=== PATIENT | female | born 1985 | race Caucasian/White ===

== ENCOUNTER 2016-11-23 22:08 | Emergency (ER) | payer OTHER ==
[~2016-11-23] VITALS: Ht 167.6 cm; Wt 99.8 kg
--- NOTE | 2016-11-23 22:41 | NUR ---
PT A/OX4 BREATHING EFFORTLESSLY ON ROOM AIR, PT STATES SHE HAS BEEN HVAING LEFT SIDED CP X 2 DAYS AND STATES HER LEFT ARM STARTED HURTING TODAY, PT ON MONITOR, IN ROOM, WILL CONTINUE TO MONITOR.
[2016-11-23 22:59] LABS: BASOPHILS # (AUTO) 0.1 /CMM (0.0-0.2); BASOPHILS % (AUTO) 0.6 % (0.0-2.0); EOSINOPHILS # (AUTO) 0.5 /CMM (0.0-0.7); HEMATOCRIT 41 % (33-45); LYMPHOCYTES # (AUTO) 2.5 /CMM (0.8-4.8); LYMPHOCYTES % (AUTO) 26.8 % (20.0-44.0); MEAN CORPUSCULAR HEMOGLOBIN 30 PG (26.0-33.0); MEAN CORPUSCULAR HGB CONC 34 g/dl (31.0-36.0); MEAN CORPUSCULAR VOLUME 88 fL (82-100); MONOCYTES # (AUTO) 0.5 /CMM (0.1-1.30); MONOCYTES % (AUTO) 5.2 % (2.0-12.0); NEUTROPHILS # (AUTO) 5.9 /CMM (1.8-8.9); NEUTROPHILS % (AUTO) 62.4 % (43.0-81.0); PLATELET COUNT (AUTO) 329 /CMM (150-450); RDW COEFFICIENT OF VARIATION 12.2 (11.5-15.0); RED BLOOD CELL COUNT(AUTO) 4.67 MIL/uL (4.0-5.2); WHITE BLOOD COUNT (AUTO) 9.5 K/uL (4.3-11.0)
[2016-11-23] MEDS ORDERED: KETOROLAC TROMETHAMINE INJ 30 MG/ML VIAL IV ONE (23:00)
[2016-11-23] MEDS ORDERED: KETOROLAC TROMETHAMINE INJ 60 MG/2 ML VIAL IM ONE (23:00)
[2016-11-23 23:09] LABS: CALCIUM, SERUM 9.5 mg/dL (8.5-10.1); CARBON DIOXIDE 27 mmol/L (21-32); CHLORIDE 102 mmol/L (98-107); CREATININE 0.6 mg/dL (0.6-1.3); GLUCOSE 104 mg/dL (74-106); POTASSIUM 3.7 mmol/L (3.5-5.1); SODIUM SERUM 139 mmol/L (136-145); UREA NITROGEN, BLOOD 8 mg/dL (7-18)
[2016-11-23 23:16] LABS: TROPONIN I < 0.017 ng/mL (0.00-0.056)
[2016-11-23 23:19] LABS: D-DIMER 0.41 mg/L(FEU (0.17-0.50); INR 0.98 (0.87-1.13); PROTHROMBIN TIME 10.5 SECS (9.5-12.7)
[2016-11-23 23:28] VITALS: BP 130/84
== END 2016-11-23 23:29 | disposition home or self-care (01) ==
LOC: ER 22:12
DX: R07.89 Other chest pain (principal); J45.909 Unspecified asthma, uncomplicated
CPT/HCPCS: 36415; 71010; 80048; 84484; 85025; 85378; 85730; 93005; 99285; A4606; Z7610; 81000-TC; 84703-TC

== ENCOUNTER 2018-02-28 05:45 | Emergency (ER) | payer OTHER ==
[~2018-02-28] VITALS: Ht 167.6 cm; Wt 104.3 kg
--- NOTE | 2018-02-28 06:05 | NUR ---
Pt BIB SELF FROM HOME. Pt C/O DULL CHEST PAIN RADIATING TO L ARM X1DAY. Pt DENIES HAVING ANY N-/V-/D- AND NO S/S OF ACUTE DISTRESS OR SOB NOTED. BOYFRIEND AT BEDSIDE. Pt BEING SEEN BY MD AT BEDSIDE.
[2018-02-28] MEDS ORDERED: KETOROLAC TROMETHAMINE INJ 30 MG/ML VIAL IV ONE (06:30)
[2018-02-28] MEDS ORDERED: KETOROLAC TROMETHAMINE 15 MG/ML VIAL ONE (06:35)
--- NOTE | 2018-02-28 06:35 | NUR ---
IV STARTED ON LAC#18G.
[2018-02-28 06:51] LABS: BASOPHILS % (AUTO) 0.5 % (0.0-2.0); EOSINOPHILS % (AUTO) 6.9 % (0.0-6.0); HEMATOCRIT 40 % (33-45); HEMOGLOBIN 13.2 g/dL (11.5-14.8); LYMPHOCYTES # (AUTO) 2.7 /CMM (0.8-4.8); LYMPHOCYTES % (AUTO) 29.6 % (20.0-44.0); MEAN CORPUSCULAR HEMOGLOBIN 29 PG (26.0-33.0); MEAN CORPUSCULAR HGB CONC 33 g/dl (31.0-36.0); MEAN CORPUSCULAR VOLUME 89 fL (82-100); MONOCYTES # (AUTO) 0.5 /CMM (0.1-1.30); NEUTROPHILS # (AUTO) 5.3 /CMM (1.8-8.9); PLATELET COUNT (AUTO) 379 /CMM (150-450); RDW COEFFICIENT OF VARIATION 12.8 (11.5-15.0); RED BLOOD CELL COUNT(AUTO) 4.51 MIL/uL (4.0-5.2); WHITE BLOOD COUNT (AUTO) 9.1 K/uL (4.3-11.0)
[2018-02-28 06:55] LABS: CALCIUM, SERUM 8.7 mg/dL (8.5-10.1); CARBON DIOXIDE 27 mmol/L (21-32); CHLORIDE 105 mmol/L (98-107); CREATININE 0.6 mg/dL (0.6-1.3); GLUCOSE 103 mg/dL (74-106); POTASSIUM 3.7 mmol/L (3.5-5.1); SODIUM SERUM 140 mmol/L (136-145); UREA NITROGEN, BLOOD 6 mg/dL (7-18)
--- NOTE | 2018-02-28 06:55 | NUR ---
Pt STATED THAT SHE IS UNABLE TO PEE AT THE MOMENT. STATED THAT SHE IS 100% NOT AND WANTED TO SIGN THE WAIVER SO THAT SHE CAN GET THE CT DONE RIGHT AWAY. NOTIFIED AGREED TO CONSENT. CALLED RADIOLOGY TO TAKE Pt DOWN TO CT.
[2018-02-28 07:05] LABS: TROPONIN I < 0.017 ng/mL (0.00-0.056)
--- NOTE | 2018-02-28 07:20 | NUR ---
PATIENT TAKEN TO RADIOLOGY VIA STRETCHER
[2018-02-28 07:23] LABS: INR 0.97 (0.87-1.13)
[2018-02-28] MEDS ORDERED: IOHEXOL-350 100 ML VIAL IV ONE (07:23)
[2018-02-28] MEDS ORDERED: IV NS 0.9% 250 ML IV ONE (07:23)
[2018-02-28] MEDS ORDERED: CT SWABBABLE VALVE TRANS SET 1 EA INFUS.SET MC ONE (07:23)
--- NOTE | 2018-02-28 07:35 | NUR ---
Pt BACK FROM CT
--- NOTE | 2018-02-28 07:36 | NUR ---
REPORT GIVEN TO BILLY FOR Pt's JOSE.
--- NOTE | 2018-02-28 07:40 | NUR ---
RECEIVED REPORT FOR JOSE. PATIENT REMAINS STABLE. WILL CONTINUE TO MONITOR.
[2018-02-28 07:58] VITALS: BP 128/73
--- NOTE | 2018-02-28 08:00 | NUR ---
IV removed. Catheter intact and site benign. Pressure and 4x4 applied to site. No bleeding noted. Patient discharged to home in stable condition. Written and verbal after care instructions given. Patient verbalizes understanding of instruction.
== END 2018-02-28 08:00 | disposition home or self-care (01) ==
LOC: ER 05:47
DX: R07.89 Other chest pain (principal); J45.909 Unspecified asthma, uncomplicated
CPT/HCPCS: 36415; 71045; 71275; 80048; 84484; 85025; 85730; 93005; 96374; 99285; A4606; J1885; J7050; Q9967; Z7610

== ENCOUNTER 2020-04-15 13:06 | Emergency (ER) | payer OTHER ==
[~2020-04-15] VITALS: Ht 170.2 cm; Wt 98.0 kg
--- NOTE | 2020-04-15 13:20 | NUR ---
PT CAME TO ER WITH LLQ abd pain SINCE THIS MORNING WITH +NAUSEA, NO VOMIT, +DIARRHEA 4X. NO FEVER. NO DYSURIA. AWAITING FOR MD OBREGON
--- NOTE | 2020-04-15 13:35 | NUR ---
IV LINE ESTABLISHED. BLOOD DRAWN, URINE COLLECTED AND SENT TO LAB
[2020-04-15 13:43] LABS: BASOPHILS % (AUTO) 0.3 % (0.0-2.0); EOSINOPHILS % (AUTO) 1.3 % (0.0-6.0); HEMATOCRIT 40 % (33-45); HEMOGLOBIN 12.6 g/dL (11.5-14.8); LYMPHOCYTES # (AUTO) 1.3 /CMM (0.8-4.8); LYMPHOCYTES % (AUTO) 8.9 % (20.0-44.0); MEAN CORPUSCULAR HGB CONC 32 g/dl (31.0-36.0); MEAN CORPUSCULAR VOLUME 89 fL (82-100); MONOCYTES # (AUTO) 0.5 /CMM (0.1-1.30); MONOCYTES % (AUTO) 3.6 % (2.0-12.0); NEUTROPHILS # (AUTO) 12.5 /CMM (1.8-8.9); NEUTROPHILS % (AUTO) 85.9 % (43.0-81.0); PLATELET COUNT (AUTO) 386 /CMM (150-450); RED BLOOD CELL COUNT(AUTO) 4.44 MIL/uL (4.0-5.2); WHITE BLOOD COUNT (AUTO) 14.5 K/uL (4.3-11.0)
[2020-04-15] MEDS ORDERED: MORPHINE SULFATE INJ 4 MG/ML DISP.SYRIN ONE (13:43)
[2020-04-15] MEDS ORDERED: ONDANSETRON HCL/PF 4 MG/2 ML VIAL ONE (13:43)
[2020-04-15 13:54] LABS: CALCIUM, SERUM 9.1 mg/dL (8.5-10.1); CREATININE 0.8 mg/dL (0.6-1.3); POTASSIUM 3.6 mmol/L (3.5-5.1)
[2020-04-15 14:00] LABS: ALBUMIN 3.3 g/dL (3.4-5.0); TOTAL PROTEIN, SERUM 8.2 g/dL (6.4-8.2)
[2020-04-15] MEDS ORDERED: MORPHINE SULFATE INJ 2 MG/ML DISP.SYRIN IV ONE (14:00)
[2020-04-15] MEDS ORDERED: IV NS 0.9% 1,000 ML BAG IV ONE (14:00)
[2020-04-15] MEDS ORDERED: ONDANSETRON HCL/PF 4 MG/2 ML VIAL IVP ONE (14:00)
[2020-04-15 14:03] LABS: APPEARANCE,URINE Slightly Cloudy (CLEAR); BILIRUBIN,URINE Negative (NEGATIVE); BLOOD, URINE Large Ery/uL (NEGATIVE); COLOR,URINE Yellow (YELLOW); KETONES,URINE Negative (NEGATIVE); LEUKOCYTE ESTERASE ,URINE Trace (NEGATIVE); NITRITE, URINE Negative (NEGATIVE); PROTEIN,URINE Trace mg/dl (NEGATIVE); UGLUCOSE Negative (NEGATIVE); UROBILINOGEN,URINE 0.2 EU/dL (0.2)
[2020-04-15 14:25] LABS: RBC,URINE 81-100 /HPF (0-2)
[2020-04-15 14:26] LABS: BACTERIA,URINE Rare /HPF (None Seen); SQUAMOUS EPITHELIAL CELL,UR Few /HPF (None Seen)
[2020-04-15] MEDS ORDERED: IOHEXOL-300 100 ML VIAL IV ONE (14:38)
[2020-04-15] MEDS ORDERED: IV NS 0.9% 250 ML IV ONE (14:39)
--- NOTE | 2020-04-15 14:48 | NUR ---
pt in bed. still c/o 12/26 pain on left flank. MD camp notified
[2020-04-15 15:05] LABS: BILIRUBIN,DIRECT 0.1 mg/dL (0.0-0.2); BILIRUBIN,TOTAL 0.4 mg/dL (0.2-1.0)
--- NOTE | 2020-04-15 15:30 | NUR ---
dr camp at pt bedside for evaluation
--- NOTE | 2020-04-15 15:51 | NUR ---
CALLED DR. MATUTE FOR KIDNEY STONE CONSULT.
[2020-04-15] MEDS ORDERED: KETOROLAC TROMETHAMINE INJ 30 MG/ML VIAL IV ONE (16:00)
[2020-04-15] MEDS ORDERED: KETOROLAC TROMETHAMINE INJ 30 MG/ML VIAL ONE (16:19)
[2020-04-15] MEDS ORDERED: HYDROMORPHONE 1 MG/1 ML DISP.SYRIN ONE (16:27)
[2020-04-15] MEDS ORDERED: HYDROMORPHONE 1 MG/1 ML DISP.SYRIN IV ONE (16:30)
[2020-04-15 17:11] VITALS: BP 123/67
== END 2020-04-15 17:27 | disposition home or self-care (01) ==
LOC: ER 13:10
DX: N13.2 Hydronephrosis with renal and ureteral calculous obstruction (principal); R16.2 Hepatomegaly with splenomegaly, not elsewhere classified; J45.909 Unspecified asthma, uncomplicated; Z87.442 Personal history of urinary calculi
CPT/HCPCS: 36415; 74177; 80048; 80076; 81001; 83690; 84703; 96361; 85025; 96374; 96375; 99285; J1170; J1885; J2270; J2405; J7030; J7050; Q9967; 81000-TC